=== PATIENT | male | born 1990 | race African-American/Black ===

== ENCOUNTER 2016-12-06 00:01 | Emergency (ER) | payer SELFPAY ==
[~2016-12-06] VITALS: Ht 177.8 cm; Wt 84.0 kg
[2016-12-06] MEDS ORDERED: IBUPROFEN 800MG TABLET PO ONE (02:30)
[2016-12-06 06:10] VITALS: BP 118/68
== END 2016-12-06 06:51 | disposition home or self-care (01) ==
LOC: ER 00:01
DX: S33.5XXA Sprain of ligaments of lumbar spine, initial encounter (principal); V49.49XA Driver injured in collision with other motor vehicles in traffic accident, initial encounter; Y93.89 Activity, other specified; Y92.410 Unspecified street and highway as the place of occurrence of the external cause; F17.210 Nicotine dependence, cigarettes, uncomplicated
CPT/HCPCS: 72040; 72100; 99284